=== PATIENT | male | born 2000 | race Two or more races ===

== ENCOUNTER 2024-02-20 04:15 | Emergency (ER) | payer BC, SELFPAY ==
[2024-02-20 04:16] VITALS: BMI 33.5
[2024-02-20 04:30] VITALS: BP 145/83; PULSE 78; RESP 16; TEMP 36.4; O2SAT 98
--- NOTE | 2024-02-20 04:41 | XR_ITS ---
Examination: Abdomen sonogram, Limited Date and time of exam: February 20, 2024 0540 hrs. Indications: Epigastric pain beginning 2 days ago Technique: Real-time ulloa scale transabdominal sonographic images of the upper abdomen obtained. Findings: Normal gallbladder Normal common bile duct 0.4 cm Pancreas obscured by bowel gas Liver 16.1 cm fatty liver no focal liver lesions Normal hepatopedal portal venous flow Patent IVC Impression: Normal gallbladder Fatty liver
--- NOTE | 2024-02-20 04:42 | PD.EDRME ---
Rapid Medical Screening Exam RME Arrival date/time: 02/20/24 04:15 23-year-old male past medical history of gallstones presents to the emergency department complaining of epigastric pain that started last night. Chief Complaint: Abdominal Pain Vital signs: Vital Signs Temperature 97.6 F 02/20/24 04:30 Pulse Rate 78 02/20/24 04:30 Respiratory Rate 16 02/20/24 04:30 Blood Pressure 145/83 H 02/20/24 04:30 Pulse Oximetry (%) 98 02/20/24 04:30 Oxygen Delivery Method Room Air 02/20/24 04:30 Vital signs reviewed by provider: Yes
[2024-02-20] MEDS: KETOROLAC INJ 60 MG/2 ML VIAL 30 MG IM (04:49)
[2024-02-20 05:30] LABS: Basophils # (Auto) 0.1 Thou/mm3 (0.0-0.2); Basophils % (Auto) 1 % (0-2.5); Eosinophils % (Auto) 0 % (0-10); Hematocrit 48.8 % (41.0-53.0); Hemoglobin 16.4 g/dL (13.5-16.0); Immature Granulocytes % (Auto) 1 % (0-0); Immature Granulocytes Auto 0.08 Thou/mm3 (0.00-0.00); Lymphocytes % (Auto) 8 % (10-50); Mean Corpuscular HGB Conc 33.6 g/dl (31.0-37.0); Mean Corpuscular Hemoglobin 26.3 pg (25.0-35.0); Mean Corpuscular Volume 78 fL (80-100); Monocytes # (Auto) 0.4 Thou/mm3 (0.0-0.8); Monocytes % (Auto) 4 % (0-12); Neutrophils # (Auto) 10.1 Thou/mm3 (1.8-7.7); Neutrophils % (Auto) 87 % (37-80); Nucleated Red Blood Cell % 0 /100 WBC (0); Platelet Count 219 Thou/mm3 (140-440); RDW Standard Deviation 36.8 fL (35.1-43.9); Red Blood Count 6.23 Miln/mm3 (4.50-5.90); White Blood Count 11.7 Thou/mm3 (3.8-10.6)
[2024-02-20 05:51] LABS: Alanine Aminotransferase 57 U/L (10-49); Albumin/Globulin Ratio 1.7 (1.2-2.2); Alkaline Phosphatase 78 U/L (46-116); Anion Gap 6 (7-16); Aspartate Amino Transferase 25 U/L (0-34); BUN/Creatinine Ratio 8 Ratio (12-20); Bilirubin,Total 0.8 mg/dL (0.3-1.2); Blood Urea Nitrogen 7 mg/dL (9-23); Calcium 9.7 mg/dL (8.3-10.6); Calcium (Corrected) 9.7 mg/dL (8.5-10.1); Carbon Dioxide 27.6 mMol/L (20.0-31.0); Chloride 105 mMol/L (98-107); Creatinine (Component) 0.9 mg/dL (0.6-1.3); Estimated Creatinine Clearance 158.8 mL/min (>60); Globulin 2.9 gm/dL (2.3-3.5); Glucose 128 mg/dL (74-106); Lipase 43 U/L (12-53); Osmolality,Calculated 277 (275-295); Potassium 3.9 mMol/L (3.4-5.1); Sodium 139 mMol/L (136-145); Total Protein 7.9 gm/dL (5.7-8.2); eGFR > 60 See Note
[2024-02-20 06:38] LABS: Collection Type, Urine Clean Catch; Squamous Epithelial Cell,Urine 0 /hpf (0-5)
[2024-02-20 06:48] LABS: Amorphous Crystals,Urine Present (Absent); Bilirubin,Urine Negative (Negative); Blood,Urine Negative (Negative); Clarity,Urine Clear (Clear/Hazy); Color,Urine Yellow (Lt Yel-Yel); Culture Indicated,Urine Not Indicated; Glucose, Urine Negative (Negative); Hyaline Casts,Urine < 1 /hpf (0-1); Ketones,Urine Negative (Negative); Leukocyte Esterase,Urine Negative (Negative); Nitrite,Urine Negative (Negative); PH,Urine 6.5 (5.0-7.0); Protein,Urine Trace (Neg - Trace); RBC,Urine 7 /hpf (0-3); Specific Gravity,Urine 1.028 (1.001-1.035); Urobilinogen,Urine Negative mg/dL (0.0-1.0); WBC,Urine 2 /hpf (0-5)
[2024-02-20 06:52] LABS: Bacteria,Urine Rare
[2024-02-20 06:59] LABS: Amphetamine/Methamp Scrn,U Negative (Negative); Barbiturate Screen,Urine Negative (Negative); Benzodiazepines Screen,Urine Negative (Negative); Benzoylecgonine Screen, Ur Negative (Negative); Fentanyl Screen,Urine Negative (Negative); Opiate Screen,Urine Negative (Negative); THC Screen,Urine Negative (Negative)
[2024-02-20 07:05] VITALS: BP 145/86; PULSE 65; RESP 14; TEMP 37.1; O2SAT 97
--- NOTE | 2024-02-20 07:37 | PD.EDABDPN ---
ED Abdominal Pain RME/HPI General Chief Complaint: Abdominal Pain Stated complaint: SHARP ABD PAIN Time seen by provider: 02/20/24 07:35 Arrival date/time: 02/20/24 04:15 RME / HPI RME / HPI narrative: 02/20/24 04:15 23-year-old male past medical history of gallstones presents to the emergency department complaining of epigastric pain that started last night. Related Data Previous Rx's ?Medication ?Instructions ?Recorded dicyclomine 20 mg tablet 20 mg PO BID #20 tabs 10/11/23 Allergies Allergy/AdvReac Type Severity Reaction Status Date / Time No Known Allergies Allergy Verified 02/20/24 04:16 Course Orders Category Date Time Status US gall bladder Stat Exams 02/20/24 04:41 Completed CBC Stat Lab 02/20/24 04:46 Completed CMP [Comprehensive Metabolic Panel] Stat Lab 02/20/24 04:46 Completed Drug Screen,Urine Stat Lab 02/20/24 06:20 Completed Lipase Stat Lab 02/20/24 04:46 Completed Urinalysis, C/S if Indicated Stat Lab 02/20/24 06:20 Completed Ketorolac Inj [Toradol Inj] Med 02/20/24 04:41 Discontinued 30 mg IM X1 ONE Vital Signs Vital signs: Vital Signs Temperature 97.6 F 02/20/24 04:30 Pulse Rate 78 02/20/24 04:30 Respiratory Rate 16 02/20/24 04:30 Blood Pressure 145/83 H 02/20/24 04:30 Pulse Oximetry (%) 98 02/20/24 04:30 Oxygen Delivery Method Room Air 02/20/24 04:30 Abdominal Pain MDM Medications / Prescriptions Medication administrations:: Medication Administration History Discontinued Medications Ketorolac Tromethamine (Ketorolac Inj 60 Mg/2 Ml Vial) 30 mg IM X1 ONE Stop: 02/20/24 04:42 Last Admin: 02/20/24 04:49 Dose: 30 mg Documented By: Discharge Plan Prescriptions/Referrals Prescriptions/Med Rec: No Action dicyclomine 20 mg tablet 20 mg PO BID Qty: 20 0RF Referrals: Evangelist Phillip MD [Primary Care Provider] - In 1 week Patient/Caregiver Discharge Instructions Print Language: Hungarian
--- NOTE | 2024-02-20 07:38 | PD.EDABDPN ---
ED Abdominal Pain RME/HPI General Chief Complaint: Abdominal Pain Stated complaint: SHARP ABD PAIN Time seen by provider: 02/20/24 07:35 Arrival date/time: 02/20/24 04:15 RME / HPI RME / HPI narrative: 02/20/24 04:15 23-year-old male past medical history of gallstones presents to the emergency department complaining of epigastric pain that started last night. DR. SUTHERLAND MAIN ED EVALUATION: 23 year old male presents to the ED for complaint of abdominal pain beginning at 10:30 last night. Pain described as colicky in sensation that is located most along epigastric and right upper quadrant, rating as moderate. Accompanied by nausea. Patient mentioned he had chicken and rice for dinner, around 7pm. Reportedly had experienced similar pain October and January of this year and was diagnosed with gallstones. Denies fevers, chills, chest pain, cough, shortness of breath, diarrhea, constipation, or urinary symptoms. Related Data Previous Rx's ?Medication ?Instructions ?Recorded dicyclomine 20 mg tablet 20 mg PO BID #20 tabs 10/11/23 Allergies Allergy/AdvReac Type Severity Reaction Status Date / Time No Known Allergies Allergy Verified 02/20/24 04:16 Review of Systems Review of Systems Narrative Review of Systems: Constitutional: DENIES; Fevers Eyes: DENIES; Loss of vision Head/Ear/Nose: DENIES; Loss of hearing Throat: DENIES; Dysphagia Cardiovascular: DENIES; Chest pain, dyspnea or syncope Respiratory: DENIES; Shortness of breath Gastrointestinal: SEE HPI +Abd pain, +nausea DENIES; Rectal bleeding or melena. Genitourinary: DENIES; Dysuria (painful or difficult urination) Musculoskeletal: DENIES; Arthralgia (pain in a joint),; Skin: DENIES; Rash Neurological: DENIES; Loss of function or movement Psychiatric: DENIES; recent major life stressor, emotional problem, illicit drug use or abuse Endocrinology: DENIES; Weight change Hematologic/Lymphatic: DENIES; Abnormal bruising Allergic/Immunologic: DENIES; Urticaria (hives) Past Medical History Past Medical History CARDIAC: Negative Congestive Heart Failure RESPIRATORY: Negative Chronic Obstructive Pulmonary Disease (COPD) GASTROINTESTINAL: Positive Gall Bladder Disease GENITOURINARY: Negative Renal Disease ENDOCRINE: Negative Diabetes Mellitus Type 1 or Diabetes Mellitus Type 2 Social History SMOKING STATUS: Never smoker ED Exam Narrative Physical exam: Physical Exam: General: The vital signs were reviewed. The patient is non-toxic, in no apparent distress and appears healthy with a patent airway, no respiratory distress and has no apparent circulatory problems. Head & Scalp: Normocephalic, atraumatic. Face: Appears normal and is without lesions, deformity. Ears: Left external pinna appears normal. Right external pinna appears normal. Eyes: The sclera is anicteric. No obvious photophobia. The Left and Right Orbit/Lid/Conjunctiva appears normal without swelling, discoloration or injection. Nose: The nose is without deformity, discharge or tenderness; Throat: Appears normal. The mucous membranes are pink and moist without exudates, redness or mass seen. The tongue appears normal. Neck: The neck is supple and no apparent mass or adenopathy. Chest: The chest wall is normal in size and symmetry and has no chest wall tenderness or crepitus. The patient displays normal ventilator effort without retractions, accessory muscle use and has adequate air movement bilaterally with no wheezes and no rales. Cardiovascular: Regular rate and rhythm; No murmurs, rubs, or gallops; Gastrointestinal: Right upper quadrant tenderness on palpation, otherwise remaining abdomen is benign, soft The abdomen appears normal. No obvious hernias or mass. The abdomen is soft and benign, non-distended, no guarding and no rebound tenderness. Bowel sounds are present and normal sounding. No CVA tenderness. Genitourinary: Back/Spine: Extremities/Musculoskeletal/lymphatic: The bilateral upper and lower extremities are warm. There is no evidence of arterial insufficiency. There is no evidence of venous insufficiency/edema. The patient spontaneously moves bilateral upper and lower extremities with no pain and no limitation of movement. There is no apparent, injury or trauma. Skin: The skin is warm, dry and intact. No rashes. No petechia. No purpura. No abnormal bruising. The color is appropriate with no cyanosis. Mental status/Psychiatric: Mental status is appropriate for age. The patient has no apparent delusions, visual hallucinations, no apparent audible hallucinations. The patient has no apparent suicidal thoughts/ideation and no apparent homicidal thoughts/ideation. Neurological: The patient is awake, alert, interactive, cordial, cooperative and is oriented to name and situation. The patient follows commands and answers historical question with no impairment. There is no visual disturbance apparent. The pupils are equal and reactive bilaterally with normal eye movements and no diplopia The bilateral upper and lower extremities have normal strength, normal range of motion and normal functioning. Course Quality Measures none Orders Category Date Time Status US abdomen limited Stat Exams 02/20/24 08:57 Completed US gall bladder Stat Exams 02/20/24 04:41 Completed CBC Stat Lab 02/20/24 04:46 Completed CMP [Comprehensive Metabolic Panel] Stat Lab 02/20/24 04:46 Completed Drug Screen,Urine Stat Lab 02/20/24 06:20 Completed Lipase Stat Lab 02/20/24 04:46 Completed Urinalysis, C/S if Indicated Stat Lab 02/20/24 06:20 Completed Ketorolac Inj [Toradol Inj] Med 02/20/24 04:41 Discontinued 30 mg IM X1 ONE Vital Signs Vital signs: Vital Signs Temperature 97.6 F 02/20/24 04:30 Pulse Rate 78 02/20/24 04:30 Respiratory Rate 16 02/20/24 04:30 Blood Pressure 145/83 H 02/20/24 04:30 Pulse Oximetry (%) 98 02/20/24 04:30 Oxygen Delivery Method Room Air 02/20/24 04:30 Pulse ox is 98% on room air which is adequate. Abdominal Pain MDM MDM Narrative MDM Narrative:: Matilda Armenta, judith scribing for and in the presence of Dr. Sutherland. Patient 23-year-old with a history of cholelithiasis and gallbladder neck stones in the past today had first ultrasound that was read as negative I called the radiologist and he said just repeated which we did and the fourth ultrasound in the patient's history again reveals cholelithiasis with some minimal thickening. Patient waited in the ER for long period of time as we had high acuities and volume but at 1330 hrs. patient is very comfortable he was advised to follow-up with his doctor get referred to a surgeon knows return if he is having fevers intractable pain or turning yellow. Laboratory studies today revealed a nonclean-catch urine with note no flank pain is present. CMP came back essentially negative with normal kidney function. Transaminases were normal. Total bilirubin was 0.8. CBC with a white count 11.7 hemoglobin of 16.4 most likely slight dehydration with polycythemia. In review of past hemoglobins are all in a similar range. Patient was advised to drink plenty of fluids. Patient data External records reviewed:: [facility] previous records (I reviewed ultrasound on 10/11/2023 that showed cholelithiasis) Clinical information provided by:: patient Social determinants that could affect healthcare access:: none Patient has the following chronic illnesses:: Reports he was diagnosed with gallstones 10/2023 How is presenting disease/condition affected by chronic disease/condition?: exacerbated by Evaluation data The following diagnostics were reviewed and interpreted by me:: lab results and radiology exam(s) Lab and/or radiology exams considered but not ordered:: None Interpretation Summary: Ordering Physician: Mimi Dickson (EDER)Jared Date of Service: 02/20/24 Procedure(s): US gall bladder Accession Number(s): [id number] cc: Evangelist Phillip MD; Yunior Redding MD; Mimi JONES)Jared~ Examination: Abdomen sonogram, Limited Date and time of exam: February 20, 2024 0540 hrs. Indications: Epigastric pain beginning 2 days ago Technique: Real-time ulloa scale transabdominal sonographic images of the upper abdomen obtained. Findings: Normal gallbladder Normal common bile duct 0.4 cm Pancreas obscured by bowel gas Liver 16.1 cm fatty liver no focal liver lesions Normal hepatopedal portal venous flow Patent IVC Impression: Normal gallbladder Fatty liver Dictated By: Yunior Redding MD Signed By: <Electronically signed by Yunior Redding MD in OV> 02/20/24 0659 Ordering Physician: Dwayne Sutherland MD Date of Service: 02/20/24 Procedure(s): US abdomen limited Accession Number(s): [id number] cc: Evangelist Phillip MD; Dwayne Sutherland MD; Yunior Redding MD~ Examination: Abdomen sonogram, Limited Date and time of exam: February 20, 2024 0946 hours INDICATIONS: Epigastric pain beginning 2 days ago Technique: Real-time ulloa scale transabdominal sonographic images of the upper abdomen obtained. Findings: Cholelithiasis Gallbladder wall 0.4 cm no edema Common bile duct 0.3 cm Pancreatic head 3.5 cm Liver 16.0 cm fatty infiltration smooth contour Normal hepatopedal portal venous flow Patent IVC IMPRESSION: Cholelithiasis Borderline thickening gallbladder wall 0.4 cm with prominent pancreatic head, consider MRCP follow-up Dictated By: Yunior Redding MD Signed By: <Electronically signed by Yunior Redding MD in OV> 02/20/24 1106 Medications / Prescriptions Medications or Prescriptions considered but not ordered:: None Medication administrations:: Medication Administration History Discontinued Medications Ketorolac Tromethamine (Ketorolac Inj 60 Mg/2 Ml Vial) 30 mg IM X1 ONE Stop: 02/20/24 04:42 Last Admin: 02/20/24 04:49 Dose: 30 mg Documented By: MC See above Consultations Consultation(s) initiated? (list below): No Diagnosis Differential diagnosis abdominal pain: abdominal pain, calculus of kidney, gastroenteritis and other (Cholelithiasis, cholecystitis ) Most likely diagnosis given after review of the tests above:: Symptomatic cholelithiasis Admission Indicated Admission indicated?: not indicated Admission Request Was there a request for admission?: No Disposition Plan Disposition Plan: Discharge Discharge Attestation Discharge Attestation: The patient and all family members were given an opportunity to ask questions and understood the discharge instructions. Discharge instructions specifically effects, indications for sooner follow up or return to the emergency department, and the expected course of current diagnosis. Patient condition: Stable Discharge Plan Plan Patient Disposition: HOME (Self Care) Prescriptions/Referrals Prescriptions/Med Rec: No Action dicyclomine 20 mg tablet 20 mg PO BID Qty: 20 0RF Referrals: Evangelist Phillip MD [Primary Care Provider] - In 1 week Problem List Clinical Impression: Symptomatic cholelithiasis Patient/Caregiver Discharge Instructions Education Materials: ED Gallstones with Biliary Colic Additional Instructions: As we discussed you have gallstones and had another gallbladder attack. Please make an appoint the regular doctor and get referred to a surgeon. If you have recurring and intractable pain turning yellow or fever with right upper quadrant pain please return for reevaluation. You can use ibuprofen for pain intermittently if you have any mild attacks. Print Language: Bengali Stand Alone Forms: Work/School Release, Patient Portal Info Letter
--- NOTE | 2024-02-20 07:46 | PC.NURSE ---
Addendum entered by Duarte Richard RN 02/20/24 07:55: currently pt states pain has decreased to 5 out of 10 after administration of tordal by PM nurse Original Note: pt here for complains of abdominal pain that started from last night at around 2200 took pain medication and pain was not relieved. states he was here in october for gallstones but never got surgery.
[2024-02-20 08:25] VITALS: BP 142/87; PULSE 99; RESP 19; TEMP 36.9; O2SAT 98
--- NOTE | 2024-02-20 08:57 | XR_ITS ---
Examination: Abdomen sonogram, Limited Date and time of exam: February 20, 2024 0946 hours INDICATIONS: Epigastric pain beginning 2 days ago Technique: Real-time ulloa scale transabdominal sonographic images of the upper abdomen obtained. Findings: Cholelithiasis Gallbladder wall 0.4 cm no edema Common bile duct 0.3 cm Pancreatic head 3.5 cm Liver 16.0 cm fatty infiltration smooth contour Normal hepatopedal portal venous flow Patent IVC IMPRESSION: Cholelithiasis Borderline thickening gallbladder wall 0.4 cm with prominent pancreatic head, consider MRCP follow-up
[2024-02-20 11:36] VITALS: BP 158/89; PULSE 87; RESP 19; TEMP 36.9; O2SAT 97
--- NOTE | 2024-02-20 13:01 | PC.NURSE ---
patient lying in gurney semi fowlers no distress noted provider made aware
[2024-02-20 14:18] VITALS: BP 115/90; PULSE 76; RESP 16; TEMP 36.7; O2SAT 96
== END 2024-02-20 14:18 | disposition home or self-care (01) ==
PROVIDERS: Emergency Provider Emergency Medicine; PCP Family Medicine
DX: K80.20 Calculus of gallbladder without cholecystitis without obstruction (principal); K76.0 Fatty (change of) liver, not elsewhere classified
CPT/HCPCS: 36415; 76705; 80053; 80307; 81001; 83690; 85025; 96372; 99284; J1885

== ENCOUNTER 2024-06-15 17:53 | Emergency (ER) | payer BC, SELFPAY ==
[2024-06-15 17:54] VITALS: BMI 34.2
[2024-06-15 18:01] VITALS: BP 145/94; PULSE 61; RESP 18; TEMP 36.8; O2SAT 100; BMI 33.8
--- NOTE | 2024-06-15 18:03 | XR_ITS ---
Examination: Abdomen sonogram, Limited Date and time of exam: June 2024 2154 hrs. Indications: Onset right upper abdominal pain today Technique: Real-time ulloa scale transabdominal sonographic images of the upper abdomen obtained. Findings: Cholelithiasis Normal gallbladder wall 0.2 cm Normal common bile duct 0.3 cm Pancreatic head 2.6 cm Liver 15.1 cm no focal liver lesions Normal hepatopedal portal venous oh Patent IVC Impression: Cholelithiasis, negative for cholecystitis
--- NOTE | 2024-06-15 18:04 | PD.EDABDPN ---
ED Abdominal Pain RME/HPI General Chief Complaint: Abdominal Pain Stated complaint: Im having gallstone pain , abdominal pain x 1 day Time seen by provider: 06/15/24 17:59 Arrival date/time: 06/15/24 17:53 RME / HPI RME / HPI narrative: 24-year-old male patient with significant history of gallstones in the past, came in for evaluation regarding right upper quadrant pain. Onset of symptoms since 10:00 this morning and sudden onset of right upper quadrant pain, described as crampy, associated with 3 episode of vomiting. No fever was noted no diarrhea constipation or other complaints noted. Patient ate burger last night. Patient have not seen any surgeon for the gallbladder problem. Related Data Previous Rx's ?Medication ?Instructions ?Recorded dicyclomine 20 mg tablet 20 mg PO BID #20 tabs 10/11/23 dicyclomine 20 mg tablet 20 mg PO TID PRN abdominal pain 06/15/24 #30 tabs ibuprofen 800 mg tablet 800 mg PO Q8H PRN pain #30 tabs 06/15/24 Allergies Allergy/AdvReac Type Severity Reaction Status Date / Time No Known Allergies Allergy Verified 02/20/24 04:16 Review of Systems Review of Systems Narrative Review of Systems: Review of system reviewed and within normal limits except mentioned in HPI ED Exam Narrative Physical exam: VITAL SIGNS: Reviewed. GENERAL APPEARANCE: Alert and interactive, follows commands, no acute distress, HEAD AND FACE: Non-traumatic. ENT: PERRL, pink conjunctivitis, eyelid no trauma, Mucous membrane moist. NECK: Supple, nontender, no nuchal rigidity. CHEST: No tenderness, no crepitus, no paradoxical movement, no retractions. LUNGS: Clear, well ventilated, symmetric, no rales, no wheezing, no ronchi, no stridor, good breath sounds bilaterally. HEART: Regular rate, regular rhythm, no murmur, no gallops. ABDOMEN: Soft, positive bowel sounds, nondistended, no guarding, right upper quadrant tenderness, no rebound, no masses, RECTAL: Deferred. GENITAL: Deferred. NEUROLOGICAL: Gross motor function intact sensory function intact, Appropriate for age. MUSCULOSKELETAL: low back nontender, full range of motion. EXTREMITIES: Nontender, full range of motion. SKIN: Color pink, dry, no rash, no lacerations, no abrasions, no contusions. LYMPHATICS: Deferred. Course Quality Measures none Orders Category Date Time Status US gall bladder Stat Exams 06/15/24 18:03 Completed CBC Stat Lab 06/15/24 18:12 Completed Comprehensive Metabolic Panel Stat Lab 06/15/24 18:12 Completed Lipase Stat Lab 06/15/24 18:12 Completed Prothrombin Time with INR Stat Lab 06/15/24 18:12 Completed Ketorolac Inj [Toradol Inj] Med 06/15/24 18:02 Discontinued 30 mg IM X1 ONE Ondansetron Odt [Zofran Odt] Med 06/15/24 18:02 Discontinued 4 mg PO X1 ONE Vital Signs Vital signs: Vital Signs Temperature 98.2 F 06/15/24 18:01 Pulse Rate 61 06/15/24 18:01 Respiratory Rate 18 06/15/24 18:01 Blood Pressure 145/94 H 06/15/24 18:01 Pulse Oximetry (%) 100 06/15/24 18:01 Oxygen Delivery Method Room Air 06/15/24 18:01 Abdominal Pain MDM MDM Narrative [facility] Narrative:: 24-year-old male patient with significant history of gallstones in the past, came in for evaluation regarding right upper quadrant pain. Onset of symptoms since 10:00 this morning and sudden onset of right upper quadrant pain, described as crampy, associated with 3 episode of vomiting. No fever was noted no diarrhea constipation or other complaints noted. Patient ate burger last night. Patient have not seen any surgeon for the gallbladder problem. Patient's workup today all came back normal. Except for ultrasound of the gallbladder showed cholelithiasis with no sign of acute cholecystitis. Patient received Toradol IM with complete resolution of symptoms. Patient was advised to stop eating fried, greasy, fried foods and stop drinking mild. Was also advised to asked the PCP to refer him to general surgeon for definitive management of gallstone Patient data External records reviewed:: None Clinical information provided by:: patient and family Social determinants that could affect healthcare access:: none Patient has the following chronic illnesses:: None How is presenting disease/condition affected by chronic disease/condition?: no chronic disease Evaluation data The following diagnostics were reviewed and interpreted by me:: lab results and radiology exam(s) Lab and/or radiology exams considered but not ordered:: None Interpretation Summary: See results in MDM Medications / Prescriptions Medications or Prescriptions considered but not ordered:: None Medication administrations:: Medication Administration History Discontinued Medications Ketorolac Tromethamine (Ketorolac Inj 60 Mg/2 Ml Vial) 30 mg IM X1 ONE Stop: 06/15/24 18:03 Last Admin: 06/15/24 18:12 Dose: 30 mg Documented By: ILDA Ondansetron HCl (Ondansetron Odt 4 Mg Tabrap) 4 mg PO X1 ONE; Protocol Stop: 06/15/24 18:03 Last Admin: 06/15/24 18:12 Dose: 4 mg Documented By: ILDA Toradol and Zofran Consultations Consultation(s) initiated? (list below): No Diagnosis Differential diagnosis abdominal pain: abdominal pain and other (Gallstone,) Most likely diagnosis given after review of the tests above:: Gallstone Admission Indicated Admission indicated?: not indicated Explain why admission is indicated or not indicated:: Stable Admission Request Was there a request for admission?: No Disposition Plan Disposition Plan: Discharge Discharge Attestation Discharge Attestation: The patient and all family members were given an opportunity to ask questions and understood the discharge instructions. Discharge instructions specifically effects, indications for sooner follow up or return to the emergency department, and the expected course of current diagnosis. Patient condition: Stable Discharge Plan Plan Patient Disposition: HOME (Self Care) Disposition Comment: stable Prescriptions/Referrals Prescriptions/Med Rec: New dicyclomine 20 mg tablet 20 mg PO TID PRN (Reason: abdominal pain) Qty: 30 0RF ibuprofen 800 mg tablet 800 mg PO Q8H PRN (Reason: pain) Qty: 30 0RF No Action dicyclomine 20 mg tablet 20 mg PO BID Qty: 20 0RF Referrals: Evangelist Phillip MD [Primary Care Provider] - In 1 week Problem List Clinical Impression: Gallstone Patient/Caregiver Discharge Instructions Discharge Activity: activity as tolerated Education Materials: Treating Gallstones Additional Instructions: Thank you for the opportunity for serving you today. You are stable for discharged . You are advised to: Follow-up with your PCP in 1 to 2 days as per referral to general surgeon Please avoid eating fatty, greasy, fried foods. Please avoid drinking milk Return to ED for worsening of symptoms Increase oral fluids Take medication as prescribed Print Language: Kenyan Stand Alone Forms: Adriana Award Info., Patient Portal Info Letter NIC/EDER Supervising Physician NIC/EDER Supervising Physician: MD Alize
[2024-06-15] MEDS: KETOROLAC INJ 60 MG/2 ML VIAL 30 MG IM (18:12)
[2024-06-15] MEDS: ONDANSETRON ODT 4 MG TABRAP PO (18:12)
[2024-06-15 18:20] LABS: Basophils # (Auto) 0.1 Thou/mm3 (0.0-0.2); Basophils % (Auto) 1 % (0-2.5); Eosinophils # (Auto) 0.1 Thou/mm3 (0.0-0.5); Eosinophils % (Auto) 1 % (0-10); Hematocrit 46.7 % (41.0-53.0); Hemoglobin 15.9 g/dL (13.5-16.0); Immature Granulocytes % (Auto) 1 % (0-0); Immature Granulocytes Auto 0.07 Thou/mm3 (0.00-0.00); Lymphocytes # (Auto) 1.6 Thou/mm3 (1.0-4.8); Lymphocytes % (Auto) 13 % (10-50); Mean Corpuscular Hemoglobin 26.2 pg (25.0-35.0); Mean Corpuscular Volume 77 fL (80-100); Monocytes # (Auto) 0.6 Thou/mm3 (0.0-0.8); Monocytes % (Auto) 5 % (0-12); Neutrophils # (Auto) 9.6 Thou/mm3 (1.8-7.7); Neutrophils % (Auto) 80 % (37-80); Nucleated Red Blood Cell % 0 /100 WBC (0); Platelet Count 208 Thou/mm3 (140-440); RDW Standard Deviation 36.6 fL (35.1-43.9); Red Blood Count 6.07 Miln/mm3 (4.50-5.90)
[2024-06-15 18:37] LABS: Prothrombin Time 11.1 Seconds (9.0-12.2)
[2024-06-15 18:42] LABS: Alanine Aminotransferase 57 U/L (10-49); Albumin, Serum 4.5 gm/dL (3.5-5.0); Albumin/Globulin Ratio 1.5 (1.2-2.2); Alkaline Phosphatase 72 U/L (46-116); Anion Gap 8 (7-16); Aspartate Amino Transferase 27 U/L (0-34); BUN/Creatinine Ratio 9 Ratio (12-20); Bilirubin,Total 0.8 mg/dL (0.3-1.2); Blood Urea Nitrogen 9 mg/dL (9-23); Calcium 9.5 mg/dL (8.3-10.6); Calcium (Corrected) 9.5 mg/dL (8.5-10.1); Carbon Dioxide 26.5 mMol/L (20.0-31.0); Chloride 106 mMol/L (98-107); Estimated Creatinine Clearance 150.9 mL/min (>60); Globulin 3.1 gm/dL (2.3-3.5); Glucose 136 mg/dL (74-106); Lipase 51 U/L (12-53); Osmolality,Calculated 280 (275-295); Potassium 3.3 mMol/L (3.4-5.1); Sodium 140 mMol/L (136-145); Total Protein 7.6 gm/dL (5.7-8.2); eGFR > 60 See Note
[2024-06-15 22:29] VITALS: RESP 18
== END 2024-06-15 22:30 | disposition home or self-care (01) ==
PROVIDERS: Nurse Practitioner Family; Emergency Provider Emergency Medicine; PCP Family Medicine
DX: K80.20 Calculus of gallbladder without cholecystitis without obstruction (principal)
CPT/HCPCS: 36415; 76705; 80053; 83690; 85025; 85610; 96372; 99284; J1885; Q0162